=== PATIENT | female | born 1990 | race Caucasian/White ===

== ENCOUNTER 2016-10-10 22:29 | Emergency (ER) | payer OTHER ==
[2016-10-11 00:33] VITALS: BP 129/83
== END 2016-10-11 00:33 | disposition home or self-care (01) ==
LOC: ED 22:29
DX: F41.9 Anxiety disorder, unspecified (principal); F32.9 Major depressive disorder, single episode, unspecified; J45.909 Unspecified asthma, uncomplicated; Z79.899 Other long term (current) drug therapy
CPT/HCPCS: J2060